=== PATIENT | male | born 1985 | race Hispanic/Latino ===

== ENCOUNTER 2018-08-26 20:26 | Emergency (ER) | payer OTHER, SELFPAY ==
[~2018-08-26 20:26] MED LIST: Iopamidol 370 76% 100 ML VIAL ONE
[2018-08-26] MEDS ORDERED: Sodium Chloride 0.9% 1,000 ML ONE (20:50)
[2018-08-26] MEDS ORDERED: HYDROmorphone 0.5 MG/0.5 ML SYRINGE ONE (20:50)
[2018-08-26 20:55] LABS: #Basophils 0.1 thou/uL (0.0-0.2); #Eosinphils 0.1 thou/uL (0.0-0.7); #Lymphocytes 2.9 thou/uL (1.20-3.40); #Monocytes 0.6 thou/uL (0.11-0.59); #Neutrophils 4.8 thou/uL (1.40-6.50); %Basophils 1.2 % (0.0-1.0); %Eosinophils 0.7 % (0.0-10.0); %Lymphocytes 33.9 % (21.0-51.0); %Monocytes 7.4 % (0.0-10.0); %Neutrophils 56.8 % (42.0-75.0); Hemoglobin 15.3 g/dL (14.0-18.0); Mean Corpuscular HGB CONC 33.9 g/dL (32.0-36.0); Mean Corpuscular Hemoglobin 30.2 pg (27.0-31.0); Mean Corpuscular Volume 88.9 fL (78.0-98.0); Mean Platelet Volume 7.9 fL (7.4-10.4); Platelet Count 266 thou/uL (130-400); RBC Distribution Width 11.7 % (11.5-14.5); Red Blood Cell (RBC) Count 5.08 mill/uL (4.70-6.10); White Blood Cell (WBC) Count 8.4 thou/uL (4.8-10.8)
[2018-08-26 21:22] LABS: ALT (SGPT) 31 U/L (8-55); AST (SGOT) 17 U/L (5-34); Alkaline Phosphatase 104 U/L (40-150); Anion Gap 13 mmol/L (10-20); BUN (Urea Nitrogen) 18 mg/dL (8.9-20.6); Bilirubin, Total 0.6 mg/dL (0.2-1.2); Calc. Creatinine Clearance 0 mL/min (70-130); Calcium 8.9 mg/dL (7.8-10.44); Carbon Dioxide 24 mmol/L (22-29); Chloride 106 mmol/L (98-107); Estimated GFR-MDRD 82; Globulin 3.3 g/dL (2.4-3.5); Glucose 109 mg/dL (70-105); Lipase 27 U/L (8-78); Potassium 3.4 mmol/L (3.5-5.1); Protein, Total 7.3 g/dL (6.0-8.3); Sodium 140 mmol/L (136-145)
--- NOTE | 2018-08-26 21:30 | RAD ---
ABDOMEN TWO VIEW 08/26/18 HISTORY: Abdominal pain. COMPARISON: None. FINDINGS: On the upright view, the hemidiaphragms are not interrogated. Therefore, evaluation for free air is l imited. There are no dilated air filled loops of large or small bowel. Low grade distal scoliosis of the lumbar spine. No abnormal calcifications projecting over the renal shadows. No acute osseous abno rmality. IMPRESSION: No acute abnormality within the abdomen or pelvis. POS: LIZETH
--- NOTE | 2018-08-26 22:13 | CT ---
CT ABDOMEN AND PELVIS WITH CONTRAST: 08/26/18 HISTORY: Abdominal pain. Vomiting. COMPARISON: Abdomen radiograph same day. FINDINGS: The lung bases are clear. No pericardial effusion. Spleen, pancreas, liver, gallbladder are all nena l. No dilated loops of large or small bowel. The appendix is visualized and is normal. No retroperitoneal adenopathy. No hydronephrosis. There is a single focal area of cortical medullary enlargement interpolar left kidney axial image 35, coronal image 110 which can be seen with early pyelonephritis. There is a low grade submucosal edema and hyperemia of the mesentery of the sigmoid colon and descending colon. Spleen is unremarkable as well as the liver and gallbladder. No acute osseous abnormality. Focal area of skin thickening right hemiabdominal wall, axial image 79. IMPRESSION: 1. Normal appendix. 2. Focal area of poor enhancement interpolar left kidney as described. Can be seen with early py elonephritis. Urinalysis correlation recommended. 3. Very low grade submucosal edema of the sigmoid colon and descending colon with hyperemia of t he mesentery can be seen with colitis. POS: LIZETH
[2018-08-26 22:18] LABS: Bilirubin Negative (Negative); Blood, Urine Negative (Negative); Clarity Clear (Clear); Glucose, Urine (Dipstick) Negative (Negative); Leukocyte Negative (Negative); Nitrite Negative (Negative); Protein, Urine (Dipstick) Negative (Neg-Trace); Urobilinogen 0.2 mg/dL (0.2-1.0)
[2018-08-26 22:19] LABS: Specific Gravity, Urine Greater than 1.036 (1.002-1.036)
[2018-08-26 22:21] LABS: pH, Urine 5.5 (5.0-9.0)
[2018-08-26] MEDS ORDERED: Mag-Al Plus 1200 MG/1200 MG/120 MG/30 ML UDCUP ONE ×2 (22:45→22:47)
[2018-08-26] MEDS ORDERED: Lidocaine Viscous Sol 2% 15 ml UD Cup ONE ×2 (22:45→22:47)
== END 2018-08-26 23:12 | disposition home or self-care (01) ==
LOC: MADERS 20:26
DX: K29.70 Gastritis, unspecified, without bleeding (principal); B20 Human immunodeficiency virus [HIV] disease
CPT/HCPCS: 36416; 74019; 74177; 80053; 81003; 83605; 83690; 85025; 96361; 96374; J1170; J7050; Q9967